=== PATIENT | male | born 1955 | race Caucasian/White ===

== ENCOUNTER 2017-08-16 04:38 | Emergency (ER) | payer OTHER ==
[2017-08-16] MEDS: METHYLPREDNISOLONE 125 MG INJ IM (05:05)
== END 2017-08-16 05:30 | disposition home or self-care (01) ==
LOC: FTE 04:38
DX: L50.9 Urticaria, unspecified (principal)
CPT/HCPCS: 96372; 99284-25

== ENCOUNTER 2017-11-21 10:22 | Emergency (ER) | payer OTHER ==
[2017-11-21] MEDS: KETOROLAC 30 MG INJ IM (11:11)
== END 2017-11-21 11:44 | disposition home or self-care (01) ==
LOC: FTE 10:22
DX: M79.671 Pain in right foot (principal)
CPT/HCPCS: 73630; 96372; 99284-25

== ENCOUNTER 2018-11-06 12:20 | Emergency (ER) | payer OTHER ==
[2018-11-06] MEDS: KETOROLAC 30 MG INJ IM (12:49)
== END 2018-11-06 14:48 | disposition home or self-care (01) ==
LOC: FTE 14:48
DX: M54.5 Low back pain (principal)
CPT/HCPCS: 72100; 96372; 99284-25